=== PATIENT | female | born 1995 | race Caucasian/White ===

== ENCOUNTER 2019-03-11 17:49 | Emergency (ER) | payer OTHER ==
[~2019-03-11] VITALS: Ht 177.8 cm; Wt 124.7 kg
--- NOTE | 2019-03-11 18:36 | NUR ---
PATIENT AWAKE ALERT MADE AWARE PLAN OF CARE RAPID STREP OBTAINED AND SEND TO LAB
[2019-03-11] MEDS ORDERED: IBUPROFEN 600 MG TABLET PO ONE ×2 (19:00→19:05)
--- NOTE | 2019-03-11 19:46 | NUR ---
Patient discharged to home in stable condition. Written and verbal after care instructions given. Patient verbalizes understanding of instruction.
[2019-03-11 19:47] VITALS: BP 132/84
== END 2019-03-11 19:47 | disposition home or self-care (01) ==
LOC: ER 17:53
DX: J02.0 Streptococcal pharyngitis (principal); F10.10 Alcohol abuse, uncomplicated; F17.200 Nicotine dependence, unspecified, uncomplicated; Y90.9 Presence of alcohol in blood, level not specified
CPT/HCPCS: 71045-TC; 86403-TC

== ENCOUNTER 2023-12-21 16:02 | Emergency (ER) | payer MEDICAID, OTHER | END 2023-12-21 17:14 | disposition left against medical advice (07) | LOC: ER 16:16 | DX: R21 Rash and other nonspecific skin eruption (principal); Z53.21 Procedure and treatment not carried out due to patient leaving prior to being seen by health care provider ==